=== PATIENT | male | born 1975 | race Caucasian/White ===

== ENCOUNTER 2021-02-14 02:00 | Emergency (ER) | payer BC ==
[2021-02-14] MEDS ORDERED: Amoxicillin 500 MG Cap PO ONE (02:25)
--- NOTE | 2021-02-14 02:36 | EDM.PDOC ---
ED HPI GENERAL MEDICAL PROBLEM - General Chief Complaint: ENT Problem Stated Complaint: tooth pain Time Seen by Provider: 02/14/21 02:14 Source of Information: Reports: Patient, RN Notes Reviewed - History of Present Illness INITIAL COMMENTS - FREE TEXT/NARRATIVE: 46 yr old male with dental pain, L upper post molars and L lower jaw as well. No fever, chills, nausea or vomiting. Left Lower Tooth/Teeth Pain Score (Numeric/FACES): 6 - Related Data Allergies Allergy/AdvReac Type Severity Reaction Status Date / Time No Known Allergies Allergy Verified 02/14/21 02:22 Home Meds: Home Meds Amlodipine Besylate/Valsartan [Amlodipine-Valsartan 5-160 mg] 1 tab PO DAILY 02/14/21 [History] Amoxicillin 1,000 mg PO BID #30 capsule 02/14/21 [Rx] Past Medical History Cardiovascular History: Reports: Hypertension - Infectious Disease History Infectious Disease History: Reports: Chicken Pox - Past Surgical History HEENT Surgical History: Reports: Oral Surgery Other HEENT Surgeries/Procedures: wisdom teeth Social & Family History - Family History Family Medical History: No Pertinent Family History - Tobacco Use Tobacco Use Status *Q: Current Every Day Tobacco User Years of Tobacco use: 25 Packs/Tins Daily: 1.5 - Caffeine Use Caffeine Use: Reports: None - Recreational Drug Use Recreational Drug Use: No ED ROS ENT - Review of Systems Review Of Systems: See Below Constitutional: Denies: Fever, Chills HEENT: Reports: Dental Pain Respiratory: Denies: Shortness of Breath Cardiovascular: Denies: Chest Pain GI/Abdominal: Denies: Abdominal Pain, Nausea, Vomiting Musculoskeletal: Reports: No Symptoms Skin: Reports: No Symptoms Neurological: Denies: Headache ED EXAM, ENT - Physical Exam Exam: See Below General Appearance: Alert, No Apparent Distress Ears: Normal External Exam Nose: Normal Inspection, Other (cavitation L upper and lower teeth, mild swelling L upper post gum, no drainage) Neck: Supple Respiratory/Chest: No Respiratory Distress, Lungs Clear, Normal Breath Sounds Cardiovascular: Regular Rate, Rhythm Extremities: Normal Inspection, Normal Range of Motion Neurological: Alert, Oriented, No Motor/Sensory Deficits Skin: Warm, Dry, Normal Color Course - Vital Signs Last Recorded V/S: Last Vital Signs Temp 97.3 F 02/14/21 02:16 Pulse 91 02/14/21 02:16 Resp 16 02/14/21 02:16 BP 122/81 02/14/21 02:16 Pulse Ox 99 02/14/21 02:16 - Orders/Labs/Meds Meds: Medications Discontinued Medications Generic Name Dose Route Start Last Admin Trade Name Joseluis PRN Reason Stop Dose Admin Amoxicillin 1,000 mg 02/14/21 02:25 02/14/21 02:35 Amoxicillin 500 Mg Cap PO 02/14/21 02:26 1,000 mg ONETIME ONE Administration Departure - Departure Time of Disposition: 02:34 Disposition: Home, Self-Care 01 Condition: Fair Clinical Impression: Pain, dental - Discharge Information Prescriptions: Amoxicillin 1,000 mg PO BID #30 capsule Instructions: Managing Pain Without Opioids Referrals: Anisha Villalba ASSESSMENT ANALYST [Primary Care Provider] - Forms: ED Department Discharge Additional Instructions: Amoxicillin 1000 mg twice daily. Because your first dose today is at 2:15 AM take an extra 500 mg around noon today, than 1000 mg tonight at bedtime. Continue 2 500 mg tablets twice daily for 1 week or until gone. Prescription has been sent to [facility] on [address]. See dentist as soon as possible. Sepsis Event Note (ED) - Evaluation Sepsis Screening Result: No Definite Risk - Focused Exam Vital Signs: Vital Signs Temp Pulse Resp BP Pulse Ox 02/14/21 02:16 97.3 F 91 16 122/81 99
== END 2021-02-14 02:47 | disposition home or self-care (01) ==
LOC: JD.ED 02:00
DX: K08.89 Other specified disorders of teeth and supporting structures (principal); I10 Essential (primary) hypertension; Z72.0 Tobacco use
CPT/HCPCS: 99282; A9270; 99283